=== PATIENT | female | born 1995 | race Caucasian/White ===

== ENCOUNTER → 2017-11-11 11:38 | Outpatient (CLI) | payer OTHER, SELFPAY ==
[2017-11-11 13:57] LABS: Vitamin B12 474 pg/mL (211-911); Vitamin D,25 Hydroxy 21.1 ng/mL (29.95-100.01)
[2017-11-11 13:58] LABS: T4 Free Direct 0.81 ng/dL (0.76-1.46); Thyroid Stim Hormone (TSH) 1.36 uIU/mL (0.358-3.74)
[2017-11-11 14:17] LABS: Hemoglobin A1c 5.5 % (4.2-6.3)
[2017-11-11 16:34] LABS: Chlamydia Trachomatis by PCR Negative (Negative); Neisserai gonorrhoeae by PCR Negative (Negative); Probe Check PASS; Sample Adequacy Control PASS; Specimen Processing Control PASS
[2017-11-14 08:09] LABS: HPV Reflexed? NOT INDICATED
== END ==
PROVIDERS: Visit Provider Obstetrics & Gynecology
DX: R53.83 Other fatigue (principal); F32.9 Major depressive disorder, single episode, unspecified; Z12.4 Encounter for screening for malignant neoplasm of cervix; Z11.3 Encounter for screening for infections with a predominantly sexual mode of transmission
CPT/HCPCS: 82306; 82607; 83036; 84439; 84443; 84481; 87491; 87591; 88175; G0145